=== PATIENT | female | born 1985 | race Caucasian/White ===

== ENCOUNTER 2017-01-23 09:14 | Emergency (ER) | payer OTHER ==
[~2017-01-23] VITALS: Ht 167.6 cm; Wt 81.6 kg
[2017-01-23 10:40] LABS: CONTROL LINE UCG INT CTR LINE PRESENT
[2017-01-23 11:42] VITALS: BP 138/76
--- NOTE | 2017-01-23 12:58 | REP ---
PELVIC ULTRASOUND: Real-time sonographic evaluation of pelvis performed utilizing transabdominal and endovaginal technique. Bladder measures 4.1 x 4.9 x 1.6 cm. Uterus measures 7.7 x 3.8 x 4.9 cm. Endometrial thickness is 8 mm. There is no endometrial fluid collection. Nabothian cysts are seen in the region of the cervix. Right ovary measures 2.9 x 2.0 x 1.4 cm and left ovary 2.3 x 2.2 x 2.1 cm. There is a complex follicle in the left ovary, 1.5 x 1.3 x 0.9 cm. There is no other evidence of adnexal mass or free fluid. There is blood flow seen in each ovary with duplex Doppler evaluation, with no torsion, RI of the right ovary 0.53 and left ovary 0.55. IMPRESSION: Complex dominant follicle left ovary 1.5 cm in diameter. No other evidence of adnexal mass or free fluid. No torsion. Signed by Geoffrey Gil MD 01/23/2017 08:32 P
== END 2017-01-23 12:00 | disposition home or self-care (01) ==
LOC: M ED 10:12
DX: N83.02 Follicular cyst of left ovary (principal)

== ENCOUNTER → 2017-02-05 | Outpatient (REF) | payer OTHER ==
[~2017-02-05] MED LIST: IBUP80TA PO
== END ==
LOC: M SFHCCLAY 10:41
PROVIDERS: ATTEND Family Medicine
DX: M47.817 Spondylosis without myelopathy or radiculopathy, lumbosacral region (principal); M43.17 Spondylolisthesis, lumbosacral region

== ENCOUNTER → 2017-02-05 | Outpatient (CLI) | payer OTHER ==
--- NOTE | 2017-02-06 03:19 | REP ---
Clinical: Lower back pain . Technique: AP, lateral, bilateral oblique, and coned-down views. Findings: There is no evidence for acute fracture / compression injury. Lateral and coned-down views demonstrate spondylolysis and grade 1 spondylolisthesis at the L5-L1 level with endplate sclerosis and early anterior spurring. Mild endplate sclerosis and minimal disc space narrowing is also suggested at the L4-5 level. Impression: Spondylolysis and spondylolisthesis with associated degenerative changes at the L5-S1 level. Signed by Carlos Enrique Fairbanks MD 02/06/2017 03:10 A
--- NOTE | 2017-02-06 03:23 | REP ---
Clinical: thoracic back pain. Technique: AP, lateral, and swimmers views. Findings: Alignment and kyphosis is maintained. Vertebral bodies intact. No acute fracture / compression injury or subluxation. No degenerative changes. Paravertebral soft tissues are normal. Impression: Normal thoracic spine series. Signed by Carlos Enrique Fairbanks MD 02/06/2017 03:14 A
== END ==
LOC: M CLY 10:48
PROVIDERS: ATTEND Family Medicine
DX: M43.06 Spondylolysis, lumbar region (principal)

== ENCOUNTER 2017-02-07 04:52 | Emergency (ER) | payer OTHER ==
[~2017-02-07] VITALS: Ht 167.6 cm; Wt 86.6 kg
[2017-02-07 05:06] VITALS: BP 137/76
[2017-02-07] MEDS ORDERED: KETOROLAC 30 MG/ML VIAL (J1885) IV ONE (07:15)
[2017-02-07 07:27] LABS: ANION GAP 7 MEQ/L (8-16); BLOOD UREA NITROGEN 15 MG/DL (7-18); CALCIUM LEVEL 8.7 MG/DL (8.5-10.1); CARBON DIOXIDE LEVEL 26 MEQ/L (21-32); CHLORIDE LEVEL 108 MEQ/L (98-107); CREATININE FOR GFR 0.81 MG/DL (0.55-1.02); GLOMERULAR FILTRATION RATE > 60.0 (>60); GLUCOSE, FASTING 112 MG/DL (70-105); POTASSIUM SERUM 4.3 MEQ/L (3.5-5.1); SODIUM LEVEL 141 MEQ/L (136-145)
[2017-02-07 07:35] LABS: BASO % 0.4 % (0.0-1.0); EOS # 0.1 K/mm3 (0.0-0.50); EOS % 2.3 % (0.0-3.0); LARGE UNSTAINED CELL # 0.1 K/mm3 (0.0-0.4); LARGE UNSTAINED CELL % 1.7 % (0.0-4.0); LYMPH # 2.2 K/mm3 (1.5-6.5); LYMPH % 35.4 % (24.0-44.0); MEAN CORPUSCULAR HEMOGLOBIN 31.1 pg (27.0-33.0); MEAN CORPUSCULAR HGB CONC 33.6 g/dl (32.0-36.5); MEAN CORPUSCULAR VOLUME 92.8 fl (80.0-96.0); MONO # 0.2 K/mm3 (0.0-0.8); MONO % 3.8 % (0.0-5.0); NEUTROPHILS # 3.5 K/mm3 (1.8-7.7); NEUTROPHILS % 56.3 % (36.0-66.0); PLATELET COUNT, AUTOMATED 291 k/mm3 (150-450); RED CELL DISTRIBUTION WIDTH 11.7 % (11.5-14.5); WHITE BLOOD COUNT 6.2 K/mm3 (4.0-10.0)
[2017-02-07] MEDS ORDERED: IBUP80TA PO (08:36)
--- NOTE | 2017-02-07 08:48 | REP ---
Pelvic sonography: History: Pelvic pain and lower back pain. Findings: Transabdominal and transvaginal scanning are performed. Uterine dimensions are normal at 6.9 x 3.4 x 4.7 cm. Endometrial echo is 0.5 cm thick. No focal uterine mass lesion is seen. No ovarian or adnexal mass is observed. There is a trace of fluid in the cul-de-sac. Right ovary measures 2.2 x 2.5 x 2.1 cm. It contains a 1.1 cm follicle. Its Doppler flow is normal, resistive index 0.47. The left ovary measures 3.2 x 1.7 x 2.1 cm. It contains a 1.8 cm follicle. Its Doppler flow is normal with resistive index 0.45. Impression: Normal pelvic sonography. Signed by Enmanuel Ingram MD 02/07/2017 09:38 A
== END 2017-02-07 08:57 | disposition home or self-care (01) ==
LOC: M ED 06:04
DX: N83.01 Follicular cyst of right ovary (principal); N83.02 Follicular cyst of left ovary
CPT/HCPCS: 36415; 76830; 76856; 80048; 81001; 81025; 85025; 93976; 96374; 99283; J1885

== ENCOUNTER → 2017-04-23 | Outpatient (REF) | payer OTHER ==
[2017-04-23 13:17] LABS: PROGESTERONE 0.4 NG/ML
[2017-04-23 13:18] LABS: ESTRADIOL 377.3 PG/ML; LUTEINIZING HORMONE 7.7 mIU/mL
[2017-04-23 13:19] LABS: FOLLICLE STIMULATING HORMONE 8.3 mIU/mL
[2017-04-23 13:32] LABS: FREE T4 1.03 NG/DL (0.76-1.46)
== END ==
LOC: M SFHCCLAY 09:19
PROVIDERS: ATTEND Family Medicine
DX: R23.2 Flushing (principal)

== ENCOUNTER → 2017-10-14 | Outpatient (CLI) | payer OTHER ==
[2017-10-14 18:14] LABS: BASO % 0.2 % (0.0-1.0); EOS # 0.1 10^3/uL (0.0-0.50); EOS % 1.3 % (0.0-3.0); IMMATURE GRANULOCYTE % 0.3 % (0-0); LYMPH % 32.2 % (24.0-44.0); MEAN CORPUSCULAR HEMOGLOBIN 30.2 pg (27.0-33.0); MEAN CORPUSCULAR HGB CONC 34.3 g/dl (32.0-36.5); MEAN CORPUSCULAR VOLUME 88.1 fl (80.0-96.0); MONO # 0.4 10^3/uL (0.0-0.8); MONO % 5.9 % (0.0-5.0); NEUTROPHILS # 3.8 10^3/uL (1.8-7.7); NEUTROPHILS % 60.1 % (36.0-66.0); PLATELET COUNT, AUTOMATED 278 10^3/uL (150-450); RED CELL DISTRIBUTION WIDTH 11.7 % (11.5-14.5); WHITE BLOOD COUNT 6.3 10^3/uL (4.0-10.0)
[2017-10-14 19:06] LABS: FERRITIN 131 NG/ML (8-252); URIC ACID 2.7 MG/DL (2.6-6.0)
[2017-10-14 19:27] LABS: ERYTHROCYTE SEDIMENTATION RATE 9 mm/hr (0-20)
[2017-10-18 00:06] LABS: Lyme Disease IgG/IgM Antibodie <0.91 ISR (0.00-0.90); Lyme Disease IgM Ab Quantitati <0.80 index (0.00-0.79)
== END ==
LOC: M WUC 14:34
PROVIDERS: ATTEND Family Medicine
DX: M54.9 Dorsalgia, unspecified (principal); M62.830 Muscle spasm of back; M25.50 Pain in unspecified joint

== ENCOUNTER → 2018-05-05 | Outpatient (CLI) | payer OTHER | LOC: M CLY 08:28 | DX: M25.561 Pain in right knee (principal) | CPT/HCPCS: 73564 ==

== ENCOUNTER → 2021-02-05 | Outpatient (REF) | payer OTHER ==
[2021-02-05 16:14] LABS: BASO % 0.5 % (0.0-1.0); EOS # 0.2 10^3/uL (0.0-0.5); EOS % 3.1 % (0.0-3.0); HEMATOCRIT 43.6 % (36.0-47.0); HEMOGLOBIN 14.3 g/dl (12.0-15.5); LYMPH # 2.2 10^3/uL (1.5-5.0); LYMPH % 29.5 % (24.0-44.0); MEAN CORPUSCULAR HEMOGLOBIN 30.5 pg (27.0-33.0); MEAN CORPUSCULAR HGB CONC 32.8 g/dl (32.0-36.5); MONO # 0.5 10^3/uL (0.0-0.8); MONO % 7.2 % (2.0-8.0); NEUTROPHILS # 4.4 10^3/uL (1.5-8.5); NEUTROPHILS % 59.6 % (36.0-66.0); PLATELET COUNT, AUTOMATED 321 10^3/uL (150-450); RED BLOOD COUNT 4.69 10^6/uL (4.00-5.40); WHITE BLOOD COUNT 7.4 10^3/uL (4.0-10.0)
[2021-02-05 16:49] LABS: ALT/SGPT 41 U/L (12-78); BILIRUBIN,TOTAL 0.6 MG/DL (0.2-1.0); BLOOD UREA NITROGEN 14 MG/DL (7-18); CALCIUM LEVEL 9.3 MG/DL (8.5-10.1); CARBON DIOXIDE LEVEL 29 MEQ/L (21-32); CHLORIDE LEVEL 106 MEQ/L (98-107); CHOLESTEROL LEVEL 193 MG/DL (<200); CHOLESTEROL RISK RATIO 2.474 (<5); CREATININE FOR GFR 0.82 MG/DL (0.55-1.30); FREE T4 1.07 NG/DL (0.76-1.46); GLOMERULAR FILTRATION RATE > 60.0 (>60); GLUCOSE, FASTING 110 MG/DL (70-100); HDL CHOLESTEROL 78 MG/DL (>40); LDL CHOLESTEROL 101 MG/DL (<100); NON-HDL-C 115 MG/DL; RHEUMATOID FACTOR QUANT < 10.0 IU/ML (<15.0); SODIUM LEVEL 138 MEQ/L (136-145); TOTAL PROTEIN 7.4 GM/DL (6.4-8.2); TRIGLYCERIDES LEVEL 68 MG/DL (<150)
[2021-02-05 16:52] LABS: TOTAL 25(OH) VITAMIN D 18.3 NG/ML (30.0-100.0)
[2021-02-05 17:46] LABS: ERYTHROCYTE SEDIMENTATION RATE 8 mm/hr (0-20)
[2021-02-05 18:33] LABS: HEMOGLOBIN A1c 5.3 %
== END ==
LOC: M SFHCCLAY 10:59
PROVIDERS: ATTEND Nurse Practitioner Family
DX: M47.22 Other spondylosis with radiculopathy, cervical region (principal); M47.12 Other spondylosis with myelopathy, cervical region; E55.9 Vitamin D deficiency, unspecified; E66.9 Obesity, unspecified; M25.50 Pain in unspecified joint

== ENCOUNTER → 2023-11-05 | Outpatient (REF) | LOC: M EMP 11:59 | PROVIDERS: ATTEND Family Medicine | DX: Z11.52 Encounter for screening for COVID-19 (principal) ==

== ENCOUNTER → 2024-01-07 | Outpatient (REF) | payer BC ==
[2024-01-07 12:39] LABS: BASO % 0.6 % (0.0-1.0); EOS # 0.1 10^3/uL (0.0-0.5); EOS % 1.5 % (0.0-3.0); HEMATOCRIT 40.6 % (36.0-47.0); HEMOGLOBIN 13.7 g/dl (12.0-15.5); LYMPH # 2.2 10^3/uL (1.5-5.0); LYMPH % 32.9 % (24.0-44.0); MEAN CORPUSCULAR HEMOGLOBIN 30.6 pg (27.0-33.0); MEAN CORPUSCULAR HGB CONC 33.7 g/dl (32.0-36.5); MEAN CORPUSCULAR VOLUME 90.6 fl (80.0-96.0); MONO # 0.4 10^3/uL (0.0-0.8); MONO % 5.9 % (2.0-8.0); NEUTROPHILS % 58.8 % (36.0-66.0); PLATELET COUNT, AUTOMATED 337 10^3/uL (150-450); RED BLOOD COUNT 4.48 10^6/uL (4.00-5.40); WHITE BLOOD COUNT 6.8 10^3/uL (4.0-10.0)
[2024-01-07 12:49] LABS: FREE T4 1.05 NG/DL (0.89-1.76)
[2024-01-07 12:50] LABS: CHOLESTEROL RISK RATIO 2.61 (<5); HDL CHOLESTEROL 69.7 MG/DL (>40); LDL CHOLESTEROL 100.1 MG/DL (<100); LUTEINIZING HORMONE 1.2 mIU/ML; NON-HDL-C 112.3 MG/DL; THYROID STIMULATING HORMONE 1.109 uIU/ML (0.55-4.78)
[2024-01-07 12:51] LABS: FOLLICLE STIMULATING HORMONE 8.9 mIU/ML
[2024-01-07 13:10] LABS: HEMOGLOBIN A1c 5.4 % (4.0-6.0)
== END ==
LOC: M SFHCCLAY 07:23
PROVIDERS: ATTEND Nurse Practitioner Family
DX: R61 Generalized hyperhidrosis (principal); N83.201 Unspecified ovarian cyst, right side; N83.202 Unspecified ovarian cyst, left side; L29.0 Pruritus ani; R14.0 Abdominal distension (gaseous); R19.7 Diarrhea, unspecified; R42 Dizziness and giddiness

== ENCOUNTER → 2024-03-24 | Outpatient (REF) | payer BC | LOC: M LAB REF 11:51 | PROVIDERS: ATTEND Physician Assistant Medical | DX: R19.4 Change in bowel habit (principal) ==

== ENCOUNTER → 2024-05-05 | Outpatient (REF) | LOC: M EMP 10:59 | PROVIDERS: ATTEND Family Medicine | DX: Z11.52 Encounter for screening for COVID-19 (principal) ==

== ENCOUNTER → 2024-06-09 | Outpatient (CLI) | payer BC | LOC: M RAD 11:41 | PROVIDERS: ATTEND Physician Assistant Medical | DX: R11.0 Nausea (principal); R10.11 Right upper quadrant pain | CPT/HCPCS: 78227; A9537 ==

== ENCOUNTER 2024-06-20 07:35 | Day surgery (SDC) | payer BC ==
[~2024-06-20] VITALS: Ht 167.6 cm; Wt 98.1 kg
[~2024-06-20 07:35] MED LIST changes: +CITA10TA7 PO; +FEXO-112 PO; +VENL37.598 PO
[2024-06-20] MEDS: NS 1,000 ML IV ONE (08:17)
[2024-06-20] MEDS ORDERED: LIDOCAINE 2% 100MG/5ML SDV (FOR ANES.) As Ordered ONE (08:37)
[2024-06-20] MEDS ORDERED: propofoL 200 MG/20 ML VIAL As Ordered ONE (08:37)
[2024-06-20 10:00] VITALS: BP 147/70; O2SAT 100
== END 2024-06-20 10:00 | disposition home or self-care (01) ==
LOC: M OPP 07:35
PROVIDERS: ATTEND Internal Medicine Gastroenterology
DX: K64.8 Other hemorrhoids (principal); R19.4 Change in bowel habit; K44.9 Diaphragmatic hernia without obstruction or gangrene; K31.89 Other diseases of stomach and duodenum; R11.0 Nausea; R19.7 Diarrhea, unspecified; Z79.1 Long term (current) use of non-steroidal anti-inflammatories (NSAID); Z79.899 Other long term (current) drug therapy